=== PATIENT | male | born 1960 | race Caucasian/White ===

== ENCOUNTER 2020-01-14 12:29 | Outpatient (CLI) | payer OTHER ==
[2020-01-14] MEDS ORDERED: [UNRECOGNIZED DRUG - OTHER] PO (12:58)
[2020-01-14] MEDS ORDERED: UBID100C24 PO (12:58)
== END 2020-01-14 23:59 | disposition home or self-care (01) ==
LOC: STAR 12:29
PROVIDERS: ATTEND Otolaryngology
DX: Z02.9 Encounter for administrative examinations, unspecified (principal)

== ENCOUNTER 2020-01-21 08:29 | Day surgery (SDC) | payer OTHER ==
[~2020-01-21] VITALS: Ht 182.9 cm; Wt 85.4 kg
[~2020-01-21 08:29] MED LIST: LIDOCAINE 1%-EPI 1:100K, 20ML ONE; UBID100C24 PO; [UNRECOGNIZED DRUG - OTHER] PO
[2020-01-21 09:15] VITALS: BP 147/88
[2020-01-21] MEDS ORDERED: CHLORHEXIDINE 15 ML UDC MM ONE (09:30)
[2020-01-21] MEDS ORDERED: LACTATED RINGERS 1,000 ML IV SCH (10:00)
[2020-01-21] MEDS ORDERED: MIDAZOLAM 1 MG/ML, 2ML ONE (10:14)
[2020-01-21] MEDS ORDERED: FENTANYL PF 250 MCG/5ML ONE (10:14)
[2020-01-21] MEDS ORDERED: CEFAZOLIN 1,000 MG ONE (10:24)
[2020-01-21] MEDS ORDERED: ONDANSETRON 2MG/ML, 2ML ONE (10:24)
[2020-01-21] MEDS ORDERED: SUCCINYLCHOLINE 20 MG/ML, 10ML ONE (10:24)
[2020-01-21] MEDS ORDERED: PROPOFOL 10 MG/ML, 20ML ONE (10:24)
[2020-01-21] MEDS ORDERED: DEXAMETHASONE 4 MG/ML, 1ML ONE (10:24)
[2020-01-21] MEDS ORDERED: ONDANSETRON 2MG/ML, 2ML IVPush PRN (11:30)
[2020-01-21] MEDS ORDERED: ACETAMINOPHEN 325 MG TABLET PO PRN (11:30)
[2020-01-21] MEDS ORDERED: MEPERIDINE/PF 25MG/0.5ML IVPush PRN (11:30)
[2020-01-21] MEDS ORDERED: OXYcodone 5 MG/5 ML ORAL.SOL UDC PO PRN (11:30)
[2020-01-21] MEDS ORDERED: FENTANYL PF 100 MCG/2ML IV PRN (11:30)
== END 2020-01-21 13:45 | disposition home or self-care (01) ==
LOC: OUT 08:29
PROVIDERS: ATTEND Otolaryngology
DX: D17.0 Benign lipomatous neoplasm of skin and subcutaneous tissue of head, face and neck (principal); Z11.59 Encounter for screening for other viral diseases; Z79.899 Other long term (current) drug therapy; Z72.89 Other problems related to lifestyle; Z82.49 Family history of ischemic heart disease and other diseases of the circulatory system
CPT/HCPCS: 21552; 36415; 87635; 88304; J0330; J0690; J1100; J2250; J2405; J2704; J3010; J3490; J7120; 88305